=== PATIENT | female | born 1995 | race Caucasian/White ===

== ENCOUNTER 2021-01-01 08:00 | Outpatient (CLI) | payer OTHER ==
[2021-01-02 12:56] LABS: BILIRUBIN,URINE NEGATIVE (NEGATIVE); GLUCOSE, URINE (UA) NEGATIVE (NEGATIVE); KETONES,URINE (UA) NEGATIVE (NEGATIVE); LEUKOCYTE ESTERASE, URINE NEGATIVE (NEGATIVE); NITRITE,URINE NEGATIVE (NEGATIVE); OCCULT BLOOD,URINE NEGATIVE (NEGATIVE); PROTEIN,URINE NEGATIVE (NEGATIVE); UROBILINOGEN,URINE 0.2 (NORMAL) E.U./dL (NORMAL)
[2021-01-02 13:07] LABS: BACTERIA,URINE Rare /HPF (None Seen); CLARITY,URINE CLEAR (CLEAR); CRYSTALS,URINE 3-5 Calcium Oxalate /LPF; RBC,URINE None Seen /HPF (0-5); SQUAMOUS EPITHELIAL CELL,UR FEW Squamous (<= Few); WBC,URINE 0-3 /HPF (0-5)
== END 2021-01-01 23:59 ==
LOC: LAB.R 08:00
PROVIDERS: ATTEND Nurse Practitioner Obstetrics & Gynecology
DX: Z32.01 Encounter for pregnancy test, result positive (principal)
CPT/HCPCS: 81001; 87086

== ENCOUNTER 2021-01-06 15:11 | Outpatient (CLI) | payer OTHER | END 2021-01-06 15:12 | disposition home or self-care (01) | LOC: DI 15:11 | PROVIDERS: ATTEND Nurse Practitioner Obstetrics & Gynecology | DX: Z32.01 Encounter for pregnancy test, result positive (principal) ==

== ENCOUNTER 2021-01-07 08:00 | Outpatient (CLI) | payer OTHER ==
[2021-01-08 21:15] LABS: CHLAMYDIA TRACHOMATIS DNA NEGATIVE (NEGATIVE); NEISSERIA GONORRHOEAE DNA NEGATIVE (NEGATIVE); TRICHOMONAS VAGINALIS DNA NEGATIVE (NEGATIVE)
== END 2021-01-07 23:59 | disposition home or self-care (01) ==
LOC: LAB.WC 08:00
PROVIDERS: ATTEND Nurse Practitioner Obstetrics & Gynecology
DX: Z11.3 Encounter for screening for infections with a predominantly sexual mode of transmission (principal)
CPT/HCPCS: 87491; 87591; 87661

== ENCOUNTER 2021-01-07 16:20 | Outpatient (CLI) | payer OTHER ==
[2021-01-07 16:45] LABS: BASOPHILS % (AUTO) 0.2 %; EOSINOPHILS # (AUTO) 0.1 10^3/uL (0.0-0.7); EOSINOPHILS % (AUTO) 1.1 %; HCT - HEMATOCRIT 34.2 % (37.0-47.0); HGB - HEMOGLOBIN 11.6 g/dL (12.0-16.0); LYMPHOCYTES % (AUTO) 23.7 %; MEAN CORPUSCULAR HEMOGLOBIN 28.6 pg (27.0-31.0); MEAN CORPUSCULAR HGB CONC 33.9 g/dL (32.0-36.0); MEAN CORPUSCULAR VOLUME 84.2 fL (81.0-99.0); MEAN PLATELET VOLUME 10.3 fL (7.9-10.8); MONOCYTES # (AUTO) 0.6 10^3/uL (0.0-1.0); MONOCYTES % (AUTO) 4.5 %; NEUTROPHILS # (AUTO) 8.9 10^3/uL (1.5-6.6); NEUTROPHILS % (AUTO) 70.1 %; PLT - PLATELET COUNT 346 10^3/uL (130-450); RED BLOOD COUNT 4.06 10^6/uL (4.20-5.40); RED CELL DISTRIBUTION WIDTH 13.3 % (12.0-15.0); WHITE BLOOD COUNT 12.6 x10^3/uL (4.8-10.8)
[2021-01-08 12:18] LABS: HEPATITIS B SURFACE ANTIGEN NON-REACTIVE (NON-REACTIVE); HEPATITIS C ANTIBODY NON-REACTIVE (NON-REACTIVE)
[2021-01-08 16:16] LABS: HIV AG/AB 4TH GEN NON-REACTIVE (NON-REACTIVE)
== END 2021-01-07 16:21 | disposition home or self-care (01) ==
LOC: LAB 16:20
PROVIDERS: ATTEND Nurse Practitioner Obstetrics & Gynecology
DX: Z36.89 Encounter for other specified antenatal screening (principal)
CPT/HCPCS: 36415; 85025; 86592; 86762; 86787; 86803; 86850; 86900; 86901; 87340; 87389

== ENCOUNTER 2021-01-30 10:00 | Outpatient (CLI) | payer OTHER | END 2021-01-30 10:01 | disposition home or self-care (01) | LOC: LAB.N 10:00 | PROVIDERS: ATTEND Obstetrics & Gynecology | DX: O30.049 Twin pregnancy, dichorionic/diamniotic, unspecified trimester (principal) | CPT/HCPCS: 36415; 82950 ==

== ENCOUNTER 2021-02-14 09:40 | Outpatient (CLI) | payer OTHER ==
--- NOTE | 2021-02-14 23:56 | Ultrasound Report ---
PROCEDURE: OB Detailed Eval INDICATIONS: SUPERVISION OF NORMAL OUTSIDE/PRIOR DATING DATA: Last menstrual period (LMP): 09/20/2020. LMP-based estimated date of delivery (ARON): 06/27/2021. First dating scan (date and location): 07/06/2020. Estimated date of delivery (ARON) from first dating scan: 06/25/2021. TECHNIQUE: Real-time scanning was performed of the fetuses, with image documentation and biometric measurements. Endovaginal scanning: None COMPARISON: None. FINDINGS: General: An intrauterine dichorionic-diamniotic twin is present, as evidenced by separate placentas, differing sexes, or an intervening membrane of greater than 2 mm. Maternal cervical canal: 5.4 cm; normal length is 2.5 cm or more. FETUS A: Fetus is located on the maternal right side, and is in transverse presentation. ALISA: 13.6 cm, largest vertical pocket 7.2 cm Placental position is maternal left, without previa. heart rate: 143 beats per minute. biometrics: Biparietal diameter: 5.2 cm, 21 week 5 day Head circumference: 18.9 cm, 21 week 1 day Abdominal circumference: 16.2 cm, 21 week 2 day Femur length: 3.7 cm, 21 week 5 day Estimated gestational age from initial scan: 21 week 2 day Composite gestational age from present scan: 21 week 2 day Estimated weight and percentile: 525 g, 54th percentile Measurement variability in biometric dating: +/- 10 days from 12-20 weeks gestation, +/- 2 weeks from 20-30 weeks gestation, +/- 3 weeks at 30 weeks gestation or later. Anatomic survey: Neuro: Ventricles are normal at less than 10 mm. Cisterna magna is normal at 3-11 mm. Cerebellum i s normal in size and morphology. Nuchal skin fold: Normal at less than 6 mm between 14 and 20 weeks gestational age. Face: Not seen Spine: No evidence for spina bifida. Heart: 4 chambered heart is present, with normal ventricular outflow tracts. Diaphragm: Diaphragm is intact. Stomach: Left-sided stomach is present. Kidneys: No hydronephrosis. Normal is less than 5 mm in 2nd trimester, less than 7 mm in 3rd trimester. Cord: 3-vessel cord has orthotopic insertion. Bladder: Normal in size. Extremities: All 4 extremities are visualized. FETUS B: Fetus is located on the maternal right side, and is in transverse presentation. ALISA: 12.3 cm, largest vertical pocket 7.4 cm Placental position is posterior fundal without previa. heart rate: 150 beats per minute. biometrics: Biparietal diameter: 4.9 cm, 20 week 5 day Head circumference: 18.0 cm, 20 week 3 day Abdominal circumference: 16.2 cm, 21 week 2 day Femur length: 3.5 cm, 21 week 1 day Estimated gestational age from initial scan: 21 week 2 day Composite gestational age from present scan: 21 week 0 day Estimated weight and percentile: 400 g, 35 percentile Measurement variability in biometric dating: +/- 10 days from 12-20 weeks gestation, +/- 2 weeks from 20-30 weeks gestation, +/- 3 weeks at 30 weeks gestation or later. Anatomic survey: Neuro: Ventricles are normal at less than 10 mm. Cisterna magna is normal at 3-11 mm. Cerebellum i s normal in size and morphology. Nuchal skin fold: Normal at less than 6 mm between 14 and 20 weeks gestational age. Face: Not seen Spine: No evidence for spina bifida. Heart: 4 chambered heart is present, right ventricular outflow tract not well seen Diaphragm: Diaphragm is intact. Stomach: Left-sided stomach is present. Kidneys: No hydronephrosis. Normal is less than 5 mm in 2nd trimester, less than 7 mm in 3rd trimester. Cord: 3-vessel cord has orthotopic insertion. Bladder: Normal in size. Extremities: All 4 extremities are visualized. IMPRESSION: Dichorionic diamniotic intrauterine consistent with a 21 week 2 day gestation by initial ul trasound profiles are not well seen due to positioning Right ventricular outflow tract not well visualized Reviewed by: Beto Leos MD on 02/14/2021 10:55 PM RAFAEL Approved by: Beto Leos MD on 02/14/2021 10:55 PM RAFAEL Station ID: [id number]
--- NOTE | 2021-02-14 23:59 | Ultrasound Report ---
PROCEDURE: OB Detailed Eval Ea Add INDICATIONS: SUPERVISION OF NORMAL This exam is reported under the OB detailed eval report. Please refer that report. IMPRESSION: As above Reviewed by: Beto Leos MD on 02/14/2021 10:57 PM [facility] Approved by: Beto Leos MD on 02/14/2021 10:57 PM AKKO[facility] Station ID: [id number]
== END 2021-02-14 09:41 | disposition home or self-care (01) ==
LOC: DI 09:40
PROVIDERS: ATTEND Nurse Practitioner Obstetrics & Gynecology
DX: Z36.89 Encounter for other specified antenatal screening (principal); Z34.02 Encounter for supervision of normal first pregnancy, second trimester; Z3A.21 21 weeks gestation of pregnancy

== ENCOUNTER 2021-03-27 08:00 | Outpatient (CLI) | payer OTHER ==
[2021-03-27 18:19] LABS: HGB - HEMOGLOBIN 10.7 g/dL (12.0-16.0); MEAN CORPUSCULAR HEMOGLOBIN 28.8 pg (27.0-31.0); MEAN CORPUSCULAR HGB CONC 32.4 g/dL (32.0-36.0); MEAN CORPUSCULAR VOLUME 88.7 fL (81.0-99.0); RED BLOOD COUNT 3.72 10^6/uL (4.20-5.40); RED CELL DISTRIBUTION WIDTH 14.3 % (12.0-15.0)
== END 2021-03-27 23:59 | disposition home or self-care (01) ==
LOC: LAB.WCP 08:00
PROVIDERS: ATTEND Obstetrics & Gynecology
DX: O09.92 Supervision of high risk pregnancy, unspecified, second trimester (principal)
CPT/HCPCS: 36415; 82950; 85027

== ENCOUNTER 2021-03-27 10:18 | Outpatient (CLI) | payer OTHER | END 2021-03-27 10:19 | disposition home or self-care (01) | LOC: LAB.N 10:18 | PROVIDERS: ATTEND Obstetrics & Gynecology | DX: Z53.9 Procedure and treatment not carried out, unspecified reason (principal); O09.92 Supervision of high risk pregnancy, unspecified, second trimester ==

== ENCOUNTER 2021-04-24 19:44 | Outpatient (CLI) | payer OTHER ==
--- NOTE | 2021-04-25 10:06 | Ultrasound Report ---
PROCEDURE: OB F/U or Repeat INDICATIONS: DICHORIONIC DIAMNIOTIC TWIN OUTSIDE/PRIOR DATING DATA: Last menstrual period (LMP): 09/20/2020. LMP-based estimated date of delivery (ARON): 06/27/2020. First dating scan (date and location): 01/06/2021. Estimated date of delivery (ARON) from first dating scan: 06/25/2020. The below data below was generated using the ultrasound ARON of 06/25/2020 TECHNIQUE: Real-time scanning was performed of the fetus, with image documentation and biometric measurements. COMPARISON: 02/14/2021 FINDINGS: General: Twin live dichorionic diamniotic gestation is present. Presentation: Breech for both fetus A and B. Placenta: Placental position is anterior in fetus A and posterior for fetus B, without previa. Amniotic fluid index: 8.2 cm fetus A and 14 4 cm fetus B. Largest pocket measures 7.2 and 7.4 cm resp ectively for fetus A and fetus B. heart rate: 135 and 145 beats per minute for fetus A and B respectively. Maternal cervical canal: cm long; normal length is 2.5 cm or more. biometrics: Fetus A Biparietal diameter: 7.7 cm 31 weeks 0 days Head circumference: 20.7 cm 31 weeks 4 days Abdominal circumference: 25.6 cm 29 weeks 5 days Femur length: 5.7 cm 30 weeks 1 day Estimated gestational age from initial scan: 31 weeks 1 day Composite gestational age from present scan: 30 weeks 4 days Estimated weight and percentile: 1517 g 12th percentile Measurement variability in biometric dating: +/- 10 days from 12-20 weeks gestation, +/- 2 weeks from 20-30 weeks gestation, +/- 3 weeks at 30 weeks gestation or more. biometrics: Fetus B Biparietal diameter: 7.7 cm 30 weeks 5 days Head circumference: 28.9 cm 31 weeks 5 days Abdominal circumference: 26.5 cm 30 weeks 4 days Femur length: 5.8 cm 30 weeks 1 day Estimated gestational age from initial scan: 31 weeks 1 day Composite gestational age from present scan: 30 weeks 6 days Estimated weight and percentile: 1599 g 21st percentile Other: profile's are unable to be visualized secondary to positioning. In addition, outflow tra cts remain suboptimally visualized. IMPRESSION: 1. Dichorionic, diamniotic . 2. profile doubtful tracts remain suboptimally evaluated. 3. weight of fetus A is at the 12th percentile compared to 54th percentile on prior exam. Fetus B is at the 21st percentile compared to 35th percentile on prior exam. 4. ALISA of fetus a is measured at 8.2 cm. Largest pocket for both fetus A and fetus B are measured at 7.2 cm and 7.4 cm respectively. Reviewed by: Sade Starkey MD on 04/25/2021 10:05 AM PST Approved by: Sade Starkey MD on 04/25/2021 10:05 AM PST Station ID: [id number]
--- NOTE | 2021-04-25 10:08 | Ultrasound Report ---
PROCEDURE: OB 14+ Weeks Addtl Fetus INDICATIONS: DICHORIONIC DIAMNIOTIC TWIN OUTSIDE/PRIOR DATING DATA: Last menstrual period (LMP): 09/20/2020. LMP-based estimated date of delivery (ARON): 06/27/2020. First dating scan (date and location): 01/06/2021. Estimated date of delivery (ARON) from first dating scan: 06/25/2020. The below data below was generated using the ultrasound ARON of 06/25/2020 TECHNIQUE: Real-time scanning was performed of the fetus, with image documentation and biometric measurements. COMPARISON: 02/14/2021 FINDINGS: General: Twin live dichorionic diamniotic gestation is present. Presentation: Breech for both fetus A and B. Placenta: Placental position is anterior in fetus A and posterior for fetus B, without previa. Amniotic fluid index: 8.2 cm fetus A and 14 4 cm fetus B. Largest pocket measures 7.2 and 7.4 cm resp ectively for fetus A and fetus B. heart rate: 135 and 145 beats per minute for fetus A and B respectively. Maternal cervical canal: 5.4 cm long; normal length is 2.5 cm or more. biometrics: Fetus A Biparietal diameter: 7.7 cm 31 weeks 0 days Head circumference: 20.7 cm 31 weeks 4 days Abdominal circumference: 25.6 cm 29 weeks 5 days Femur length: 5.7 cm 30 weeks 1 day Estimated gestational age from initial scan: 31 weeks 1 day Composite gestational age from present scan: 30 weeks 4 days Estimated weight and percentile: 1517 g 12th percentile Measurement variability in biometric dating: +/- 10 days from 12-20 weeks gestation, +/- 2 weeks from 20-30 weeks gestation, +/- 3 weeks at 30 weeks gestation or more. biometrics: Fetus B Biparietal diameter: 7.7 cm 30 weeks 5 days Head circumference: 28.9 cm 31 weeks 5 days Abdominal circumference: 26.5 cm 30 weeks 4 days Femur length: 5.8 cm 30 weeks 1 day Estimated gestational age from initial scan: 31 weeks 1 day Composite gestational age from present scan: 30 weeks 6 days Estimated weight and percentile: 1599 g 21st percentile Other: profile's are unable to be visualized secondary to positioning. In addition, outflow tra cts remain suboptimally visualized. IMPRESSION: 1. Dichorionic, diamniotic . 2. profile doubtful tracts remain suboptimally evaluated. 3. weight of fetus A is at the 12th percentile compared to 54th percentile on prior exam. Fetus B is at the 21st percentile compared to 35th percentile on prior exam. 4. ALISA of fetus a is measured at 8.2 cm. Largest pocket for both fetus A and fetus B are measured at 7.2 cm and 7.4 cm respectively. Reviewed by: Sade Starkey MD on 04/25/2021 10:06 AM PST Approved by: Sade Starkey MD on 04/25/2021 10:06 AM PST Station ID: [id number]
== END 2021-04-24 19:45 | disposition home or self-care (01) ==
LOC: DI 19:44
PROVIDERS: ATTEND Obstetrics & Gynecology
DX: O30.043 Twin pregnancy, dichorionic/diamniotic, third trimester (principal); Z3A.30 30 weeks gestation of pregnancy

== ENCOUNTER 2021-05-16 14:45 | Outpatient (CLI) | payer OTHER | END 2021-05-16 23:59 | disposition home or self-care (01) | LOC: LAB 14:45 | PROVIDERS: ATTEND Obstetrics & Gynecology | DX: Z36.85 Encounter for antenatal screening for Streptococcus B (principal) | CPT/HCPCS: 87797 ==

== ENCOUNTER 2021-05-23 11:17 | Outpatient (CLI) | payer OTHER ==
--- NOTE | 2021-05-23 14:12 | Ultrasound Report ---
PROCEDURE: OB F/U or Repeat INDICATIONS: DICHORIONIC DIAMNIOTIC TWIN OUTSIDE/PRIOR DATING DATA: Last menstrual period (LMP): 09/20/2020. LMP-based estimated date of delivery (ARON): 06/27/2020. First dating scan (date and location): 01/06/2021. Estimated date of delivery (ARON) from first dating scan: 06/25/2020. The below data below was generated using the ultrasound ARON of 06/25/2020 TECHNIQUE: Real-time scanning was performed of the fetus, with image documentation and biometric measurements. COMPARISON: 04/24/2021 FINDINGS: General: Twin live dichorionic diamniotic gestation is present. Presentation: Breech for both fetus A and B. Placenta: Placental position is anterior in fetus A and posterior for fetus B, without previa. Amniotic fluid index: 8.4 for fetus A and 10.8 for fetus B. heart rate: 135 and 145 beats per minute for fetus A and B respectively. Maternal cervical canal: Not seen. biometrics: Fetus A Biparietal diameter: 8.4 cm Head circumference: 31.3 cm Abdominal circumference: 31.6 cm Femur length: 6.6 cm Estimated weight and percentile: 2541g 37th percentile biometrics: Fetus B Biparietal diameter: 8.2 cm Head circumference: 30.2 cm Abdominal circumference: 31.6 cm Femur length: 6.4 cm Estimated weight and percentile: 2400 g, 22nd percentile IMPRESSION: Dichorionic diamniotic . Right ventricular outflow tract of fetus B is not visualized secondary to position. Fetus A estimated weight 37th percentile. Fetus B estimated weight 22nd percentile. facial profiles are seen and are normal. Reviewed by: Regan Waddell MD on 05/23/2021 2:10 PM PST Approved by: Regan Waddell MD on 05/23/2021 2:10 PM PST Station ID: [id number]
== END 2021-05-23 11:18 | disposition home or self-care (01) ==
LOC: DI 11:17
PROVIDERS: ATTEND Obstetrics & Gynecology
DX: O09.92 Supervision of high risk pregnancy, unspecified, second trimester (principal); O30.042 Twin pregnancy, dichorionic/diamniotic, second trimester; Z3A.01 Less than 8 weeks gestation of pregnancy

== ENCOUNTER 2021-06-16 13:49 | Outpatient (CLI) | payer OTHER ==
[2021-06-16 14:05] LABS: BASOPHILS % (AUTO) 0.2 %; EOSINOPHILS # (AUTO) 0.1 10^3/uL (0.0-0.7); EOSINOPHILS % (AUTO) 0.7 %; HCT - HEMATOCRIT 36.6 % (37.0-47.0); HGB - HEMOGLOBIN 12.1 g/dL (12.0-16.0); LYMPHOCYTES # (AUTO) 2.1 10^3/uL (1.5-3.5); LYMPHOCYTES % (AUTO) 21.2 %; MEAN CORPUSCULAR HEMOGLOBIN 29.4 pg (27.0-31.0); MEAN CORPUSCULAR HGB CONC 33.1 g/dL (32.0-36.0); MEAN CORPUSCULAR VOLUME 88.8 fL (81.0-99.0); MEAN PLATELET VOLUME 11.2 fL (7.9-10.8); MONOCYTES # (AUTO) 0.7 10^3/uL (0.0-1.0); MONOCYTES % (AUTO) 6.9 %; NEUTROPHILS # (AUTO) 7.1 10^3/uL (1.5-6.6); NEUTROPHILS % (AUTO) 70.7 %; PLT - PLATELET COUNT 232 10^3/uL (130-450); RED BLOOD COUNT 4.12 10^6/uL (4.20-5.40); RED CELL DISTRIBUTION WIDTH 15.3 % (12.0-15.0); WHITE BLOOD COUNT 10.1 x10^3/uL (4.8-10.8)
== END 2021-06-16 13:50 | disposition home or self-care (01) ==
LOC: LAB 13:49
PROVIDERS: ATTEND Obstetrics & Gynecology
DX: Z01.812 Encounter for preprocedural laboratory examination (principal); O32.1XX0 Maternal care for breech presentation, not applicable or unspecified; O30.009 Twin pregnancy, unspecified number of placenta and unspecified number of amniotic sacs, unspecified trimester
CPT/HCPCS: 36415; 85025; 86850; 86900; 86901

== ENCOUNTER 2021-06-17 06:25 | Inpatient (IN) | payer OTHER ==
[~2021-06-17 06:25] MED LIST: LACTATED RINGERS 1,000 ML IV SCH
[2021-06-17] MEDS ORDERED: CELECOXIB 100 MG CAPSULE PO SCH (07:31)
[2021-06-17] MEDS ORDERED: GABAPENTIN 400 MG CAPSULE PO SCH (07:35)
--- NOTE | 2021-06-17 07:38 | HISTORY & PHYSICAL EXAMINATION ---
History and Physical - History and Physical HPI: 18-year-old -0-1-0 at 38 weeks 4 days gestation presents today for primary low transverse section secondary to malpresentation of both di- ditwins. She has good movement. Denies contractions. Denies loss of fluid. No RUFF/BV or RUQP. No vaginal bleeding. Denies nausea and vomiting. Denies urinary urgency or dysuria. All other symptoms reviewed and were negative except per HPI. Course LMP: 09/20/2020 ARON by LMP:06/29/2021 Initial U/S: 01/06/21 FINAL ARON: 06/27/21 550 Celebrex were diagnostic for 15 and 37 with malpresentation of di-ditwins 1. A pos/Rubella - immune VZV:immune Genetic testing: declines FAS:Fetus A- EFW 54%, 3VC, maternal left placenta without previa, ALISA 13.6cm FHR 143. 31-week 1517 g, 12 percentile, decreased from 54th percentile fetus. Repeat 35 weeks 2541 g 37th percentile. Fetus B-EFW 35%, 3VC, posterior fundal placenta without previa, ALISA 12.3cm [id number]. 31-week 1599 g, 21st percentile, decreased from 35th percentile. Repeat 35 weeks 2400 g 22nd percentile. Glucola: 123, repeat 03/27- 99 Influenza: 01/07 TDAP 04/10 Covid vaccine: Had COVID 08/2019; Pfizer#1: 12/2020 #2: 01/2021 GBS 05/16/2021 NEGATIVE HSV: denies in self and partner Breast pump Rx 04/10 MOD: Likely CS unless baby A becomes cephalic. Scheduled 06/17/21. pp contraception: Previous on patch and pill. Considering patch. May wait until done childbearing. pap:06/2020 [facility] PMH Declines pertinent history PSH Left oophorectomy, 2018 [place] teeth removal 2011 OB History -0-1-0 1. 02/12/2018, 12 weeks, elective SH Denies tobacco, alcohol, drugs Family History Maternal grandfather: Leukemia Allergies No known drug allergies Medications vitamins Folic acid Aspirin 81 mg Physical exam: Temp Pulse Resp BP Pulse Ox 98.1 F 83 16 122/77 100 06/17/21 07:09 06/17/21 07:09 06/17/21 07:09 06/17/21 07:09 06/17/21 07:09 General: Alert, oriented, no acute distress Head: Normal cephalic atraumatic Eyes: PERRLA, extraocular motions intact. Respiratory: Normal rate of respiration. No accessory muscle use, normal respiratory effort. Cardiovascular: Regular rate and rhythm Abdomen: Gravid, nontender, nondistended Extremities: Normal range of motion Neuro: Oriented x3. Normal movements Psych: Appropriate mood and affect. Normal judgment and insight Ultrasound: Confirmed breech again today. Plan 26-year-old -0-1-0 at 38 weeks 4 days gestation 1. Di-di twins -Plan for primary low transverse section due to malpresentation -Admit labs ordered -Plan for cefazolin for surgical prophylaxis. 2. malpresentation -Both twins confirmed breech this morning. Unsure if complete or [place] as ultrasound is limited by patient and twin positioning. 3. 38-week gestation 4. Obesity class 3, BMI 48
[2021-06-17] MEDS ORDERED: ACETAMINOPHEN 500 MG TABLET PO SCH (08:00)
[2021-06-17] MEDS ORDERED: LIDOCAINE 2%-EPI 1:100000 20 ML MDV ONE (08:18)
[2021-06-17] MEDS ORDERED: BUPIVACAINE 0.5% PF 10 ML VIAL ONE (08:18)
[2021-06-17] MEDS ORDERED: OXYTOCIN 10 UNIT/ML VIAL ONE (08:20)
[2021-06-17] MEDS ORDERED: PHENYLEPHRINE 10 MG/ML VIAL ONE (08:20)
[2021-06-17] MEDS ORDERED: miSOPROStoL 200 MCG TABLET ONE (08:23)
[2021-06-17] MEDS ORDERED: CARBOPROST TROMETHAMINE 250 MCG/ML AMP IM ONE (08:24)
[2021-06-17] MEDS ORDERED: METHYLERGONOVINE 0.2 MG/ML VIAL ONE (08:24)
[2021-06-17] MEDS ORDERED: fentaNYL 100 MCG/2 ML VIAL ONE (08:29)
[2021-06-17] MEDS ORDERED: MORPHINE PF 5 MG/10 ML VIAL ONE (08:29)
[2021-06-17] MEDS ORDERED: MORPHINE 2 MG/ML CARPUJECT IVP PRN (08:34)
[2021-06-17] MEDS ORDERED: HYDROmorphone 0.5 MG/0.5 ML SYRINGE IVP PRN (08:34)
[2021-06-17] MEDS ORDERED: NALOXONE 0.4 MG/ML VIAL IVP PRN (08:34)
[2021-06-17] MEDS ORDERED: METOCLOPRAMIDE 10 MG/2 ML VIAL IVP PRN (08:34)
[2021-06-17] MEDS ORDERED: ePHEDrine 50 MG/ML VIAL IVP PRN (08:34)
[2021-06-17] MEDS ORDERED: ONDANSETRON 4 MG/2 ML VIAL IVP PRN (08:34)
[2021-06-17] MEDS ORDERED: ATROPINE ABBOJECT 1 MG/10 ML SYRINGE IVP PRN (08:34)
[2021-06-17] MEDS ORDERED: fentaNYL 100 MCG/2 ML VIAL IVP PRN (08:34)
--- NOTE | 2021-06-17 08:34 | ANESTHESIA ---
Pre-Anesthesia VS, & Labs - Diagnosis breech twins - Procedure Vital Signs: Temp Pulse Resp BP Pulse Ox 36.7 C 83 16 122/77 100 06/17/21 07:38 06/17/21 07:09 06/17/21 07:09 06/17/21 07:09 06/17/21 07:09 Height: 5 ft 8 in Weight (kg): 143.108 kg Body Mass Index: 47.9 BMI Classification: Morbidly Obese - NPO >8 hours - Is Patient ?: Yes - Lab Results Current Lab Results: Laboratory Tests 06/17/21 06:48: POC Whole Bld Glucose 67 L Home Medications and Allergies Active Medications Acetaminophen (Acetaminophen 500 Mg Tablet) 1,000 mg PO ONCE GIANA Stop: 06/17/21 10:00 Last Admin: 06/17/21 08:10 Dose: 1,000 mg Celecoxib (Celecoxib 100 Mg Capsule) 400 mg PO ONCE GIANA Stop: 06/17/21 10:00 Last Admin: 06/17/21 08:09 Dose: 400 mg Gabapentin (Gabapentin 400 Mg Capsule) 800 mg PO ONCE GIANA Stop: 06/17/21 10:00 Last Admin: 06/17/21 08:09 Dose: 800 mg Lactated Ringer's (Lr) 1,000 mls @ 0 mls/hr IV .Q0M GIANA Cefazolin Sodium 3 gm/ Sodium (Chloride) 50 mls @ 100 mls/hr IV ONCE ONE Stop: 06/17/21 08:59 Allergies/Adverse Reactions: Allergies Allergy/AdvReac Type Severity Reaction Status Date / Time No Known Drug Allergies Allergy Verified 06/17/21 01:11 Anes History & Medical History - Anesthetic History Anesthesia Complications: reports: No previous complications Family history of Anesthesia Complications: Denies Family history of Malignant Hyperthermia: Denies - Medical History Cardiovascular: reports: None Pulmonary: reports: None Gastrointestinal: reports: None Urinary: reports: None Neuro: reports: None Musculoskeletal: reports: None Smoking Status: Never smoker Exam General: Alert, Oriented x3, Cooperative Dental: WNL Mouth Openin Fingerbreadth Neck Mobility: Normal Mallampati classification: II Thyromental Distance: less than 4 cm Respiratory: Lungs clear Cardiovascular: Regular rate Plan Anesthesia Type: Spinal Consent for Procedure(s) Verified and Reviewed: Yes Code Status: Attempt Resuscitation ASA classification: 3-Severe systemic disease Is this case an emergency?: No
[2021-06-17] MEDS ORDERED: ONDANSETRON 4 MG/2 ML VIAL ONE (08:58)
[2021-06-17] MEDS ORDERED: LACTATED RINGERS 1,000 ML IV SCH ×2 (09:00→11:00)
[2021-06-17] MEDS ORDERED: LACTATED RINGERS 1,000 ML IV ONE (10:26)
[2021-06-17] MEDS ORDERED: ONDANSETRON ODT 4 MG TABLET TL PRN (10:31)
[2021-06-17] MEDS ORDERED: OXYTOCIN/SODIUM CHLORIDE 500 ML IV PRN (10:31)
--- NOTE | 2021-06-17 10:35 | OPERATIVE REPORT ---
Operative Report - General Admit Date: 06/17/21 Planned Procedure: Primary low transverse section Pre-Op Diagnosis: 38 weeks gestation, representation, di-di twins Procedure Performed: Primary low transverse section Post Op Diagnosis: Same, delivered - Procedure Note Primary Surgeon: Leonides Larkin MD Secondary Surgeon: Dionna Olvera MD Anesthesia Provider: Rolly Preston CRNA Anesthesia Technique: Spinal Pathology: None Estimated Blood Loss (mL): 850 Urine Output (mL): 200 Complications: None - Other Other Information/Narrative: section was recommended. Risks, benefits and alternatives were discussed including but not limited to infection, bleeding that may require blood products or hysterectomy for life saving measures, injury to surrounding organs including but not limited to bowel, bladder, ureters, tubes and ovaries and/or the baby. Should injury occur it could require longer/additional surgery to repair. The patient stated understanding and desired to proceed. All questions were answered posed by patient. Prior to being taken to the OR, 3 grams of cefazolin IV was administered. The patient was taken to the operating room where regional anesthesia was found to be adequate. She was then prepared and draped in the usual sterile fashion in the dorsal supine position with a leftward tilt displacing the uterus. Vega was draining to gravity. SCDs were on bilateral lower extremities. A pfannenstiel skin incision was then made with the scalpel and carried through to the underlying layer of fascia. The fascia was incised in the midline and the incision extended laterally with the Saini scissors. The superior aspect of the facial incision was then grasped with the Sergio clamps, elevated and the underlying rectus muscles dissected off sharply. Attention was then turned to the inferior aspect of this incision which in a similar fashion was grasped, elevated with the Sergio clamps and the rectus muscle dissected off sharply. The rectus muscles were in the midline. The peritoneum identified, grasped with the pick-ups and entered bluntly. The peritoneal incision was then extended superiorly and inferiorly with good visualization of the bladder. The bladder blade was inserted. The vesicouterine peritoneum was identified, grasped with the pick-ups, and entered sharply with Metzenbaum scissors. This incision was then extended laterally and the bladder flap created digitally. The bladder blade was reinserted. The lower uterine segment was identified and incised in a transverse fashion with the scalpel. The uterine incision was then extended bluntly laterally. Artificial rupture of membranes demonstrated clear fluid. The bladder blade was removed. The fetus was in a complete breech presentation. The feet were delivered then the fetus was delivered to the sacrum when a warm, moist towel was used to wrap the fetus. It was then delivered to the scapula and was rotated with the left shoulder anterior which was then flexed, medially rotated and delivered. The fetus was then rotated so the right shoulder was anterior and the right arm was similarly delivered. The head then delivered easily with fundal pressure. Delayed cord clamping was performed for approximately one minute. It was then clamped times two and cut and Baby A was handed to the hot sealing machine operator. Cord blood was obtained and the cord was marked with a curved clamp. Attention was turned to fetus B. The fetus was in a Ke[place] breech presentation. The fetus was delivered to the sacrum then the legs were flexed and delivered. Then a warm, moist towel was used to wrap the fetus. It was then delivered to the scapula and was rotated with the left shoulder anterior which was then flexed, medially rotated and delivered. The fetus was then rotated so the right shoulder was anterior and the right arm was similarly delivered. The head then delivered easily with fundal pressure. Delayed cord clamping was performed for approximately one minute. It was then clamped times two and cut and Baby B was handed to the hot sealing machine operator. Cord blood was obtained and the cord was marked with a straight clamp. The placentas were removed with gentle traction. 20 units of oxytocin were added to IVF and allowed to run freely. The uterus was exteriorized and cleared of all clots and debris. The uterine incision was inspected and found to be without any extensions and was repaired with 0 Vicryl in a running, locked fashion. A second imbricating layer was performed. Upon inspection, the repaired hysterotomy was found to be hemostatic. The uterus was firm and returned to the abdomen. The gutters were cleared of all clots and debris. The fascia was reapproximated with 0 Vicryl in a running fashion. The subcutaneous tissue was closed with 2-0 Vicryl. The skin was closed in a subcuticular fashion with 4-0 Vicryl. The patient tolerated the procedure well. Sponge, lap and needle counts were correct times three. The patient was taken to the recovery room in stable condition.
[2021-06-17] MEDS ORDERED: IBUPROFEN 600 MG TABLET PO SCH (11:00)
[2021-06-17] MEDS ORDERED: KETOROLAC 30 MG/ML VIAL IVP SCH ×2 (11:00→14:00)
--- NOTE | 2021-06-17 11:07 | ANESTHESIA POST OP EVALUATION ---
Anesthesia Post Eval - Post Anesthesia Eval Vitals: Last Vital Signs Temp 37.4 C 06/17/21 10:46 Pulse 62 06/17/21 11:00 Resp 11 L 06/17/21 11:00 BP 110/73 06/17/21 11:00 Pulse Ox 99 06/17/21 11:00 CV Function Including HR & BP: Stable Pain Control: Satisfactory Nausea & Vomiting: Negative Mental Status: Baseline Respiratory Status: Airway Patent Hydration Status: Satisfactory Anesthesia Complications: None
[2021-06-17] MEDS: ACETAMINOPHEN 500 MG TABLET PO SCH ×3 (13:05→23:54)
[2021-06-17] MEDS: SIMETHICONE CHEW 80 MG TABLET PO PRN (13:09)
[2021-06-17] MEDS: metroNIDAZOLE 250 MG TABLET PO SCH ×2 (13:09→17:38)
[2021-06-17] MEDS ORDERED: KETOROLAC 15 MG/ML VIAL IVP SCH (14:00)
[2021-06-17] MEDS: cephALEXin 250 MG CAPSULE PO SCH ×2 (14:16→21:54)
[2021-06-17] MEDS: SODIUM CHLORIDE FLUSH 0.9% 10 ML SYRINGE IVP SCH (19:29)
[2021-06-17] MEDS: KETOROLAC 30 MG/ML VIAL IVP SCH (19:56)
[2021-06-17] MEDS: SODIUM CHLORIDE FLUSH 0.9% 10 ML SYRINGE IVP PRN (20:02)
[2021-06-17] MEDS: DOCUSATE SODIUM 100 MG CAPSULE PO SCH (21:54)
[2021-06-18] MEDS: SODIUM CHLORIDE FLUSH 0.9% 10 ML SYRINGE IVP PRN (02:09)
[2021-06-18] MEDS: KETOROLAC 30 MG/ML VIAL IVP SCH ×2 (02:09→07:51)
[2021-06-18 05:47] LABS: BASOPHILS % (AUTO) 0.3 %; EOSINOPHILS # (AUTO) 0.1 10^3/uL (0.0-0.7); EOSINOPHILS % (AUTO) 0.7 %; LYMPHOCYTES # (AUTO) 2.1 10^3/uL (1.5-3.5); LYMPHOCYTES % (AUTO) 18.3 %; MEAN CORPUSCULAR HEMOGLOBIN 29.6 pg (27.0-31.0); MEAN CORPUSCULAR HGB CONC 33.3 g/dL (32.0-36.0); MEAN CORPUSCULAR VOLUME 88.8 fL (81.0-99.0); MEAN PLATELET VOLUME 10.7 fL (7.9-10.8); MONOCYTES # (AUTO) 0.9 10^3/uL (0.0-1.0); MONOCYTES % (AUTO) 7.5 %; NEUTROPHILS # (AUTO) 8.4 10^3/uL (1.5-6.6); NEUTROPHILS % (AUTO) 72.7 %; PLT - PLATELET COUNT 193 10^3/uL (130-450); RED BLOOD COUNT 3.38 10^6/uL (4.20-5.40); RED CELL DISTRIBUTION WIDTH 15.6 % (12.0-15.0); WHITE BLOOD COUNT 11.6 x10^3/uL (4.8-10.8)
[2021-06-18] MEDS: cephALEXin 250 MG CAPSULE PO SCH ×3 (06:18→22:20)
[2021-06-18] MEDS: oxyCODONE 5 MG TABLET PO PRN ×5 (06:19→22:20)
[2021-06-18] MEDS: DOCUSATE SODIUM 100 MG CAPSULE PO SCH ×2 (07:51→20:59)
[2021-06-18] MEDS: SODIUM CHLORIDE FLUSH 0.9% 10 ML SYRINGE IVP SCH (07:51)
[2021-06-18] MEDS: metroNIDAZOLE 250 MG TABLET PO SCH ×3 (07:51→17:55)
[2021-06-18] MEDS: ACETAMINOPHEN 500 MG TABLET PO SCH ×2 (09:48→17:55)
[2021-06-18] MEDS: SIMETHICONE CHEW 80 MG TABLET PO PRN ×3 (09:48→17:55)
--- NOTE | 2021-06-18 10:21 | PROVIDER PROGRESS NOTE ---
Subjective - Prog Note Date Prog Note Date: 06/18/21 - Subjective Subjective: Subjective Patient reports she is doing well. Lochia appropriate. Denies heavy bleeding. Ambulating. Pelvic and abdominal pain well-controlled. Tolerating oral intake. Diet: Regular. Voiding without difficulty. Passing flatus. Denies BM. Patient is bonding with baby is in room Breast feeding going well. Denies feeling lightheaded, dizzy or excessively fatigued. Objective General: Alert, oriented, no apparent distress. Cardiovascular: Regular rate. Regular rhythm. Lungs: No increased work of breathing. Abdomen: Uterus firm. Below umbilicus. No guarding or rebound. Incision: Clean, dry, and intact. Assessment and Plan day 1. -Routine beinge -Anticipate discharge tomorrow Status post primary low transverse section -Wound intact with minimal bleeding Objective - Vital Signs/Intake & Output Vital Signs: Vital Signs x48h Temp Pulse Resp BP Pulse Ox 06/18/21 08:14 76 15 107/63 97 06/18/21 06:15 22 06/18/21 05:07 107/61 06/18/21 04:15 97.9 F 70 22 98/45 L 97 06/18/21 03:00 16 Intake & Output: Intake & Output 06/15/21 06/16/21 06/17/21 06/18/21 23:59 23:59 23:59 23:59 Intake Total 1900 1000 Output Total 938 1942 Balance 962 -942 - Lab Results Fish Bones: 06/18/21 05:38 Other Labs: Lab Results x24hrs 06/18/21 Range/Units 05:38 WBC 11.6 H (4.8-10.8) x10^3/uL RBC 3.38 L (4.20-5.40) 10^6/uL Hgb 10.0 L (12.0-16.0) g/dL Hct 30.0 L (37.0-47.0) % MCV 88.8 (81.0-99.0) fL MCH 29.6 (27.0-31.0) pg MCHC 33.3 (32.0-36.0) g/dL RDW 15.6 H (12.0-15.0) % Plt Count 193 (130-450) 10^3/uL MPV 10.7 (7.9-10.8) fL Neut # (Auto) 8.4 H (1.5-6.6) 10^3/uL Lymph # (Auto) 2.1 (1.5-3.5) 10^3/uL Meigs # (Auto) 0.9 (0.0-1.0) 10^3/uL Eos # (Auto) 0.1 (0.0-0.7) 10^3/uL Baso # (Auto) 0.0 (0.0-0.1) 10^3/uL Absolute Nucleated RBC 0.00 x10^3/uL Nucleated RBC % 0.0 /100WBC
[2021-06-18] MEDS: IBUPROFEN 600 MG TABLET PO SCH ×2 (14:14→20:05)
[2021-06-19] MEDS: IBUPROFEN 600 MG TABLET PO SCH ×4 (02:29→20:35)
[2021-06-19] MEDS: ACETAMINOPHEN 500 MG TABLET PO SCH ×3 (02:29→18:34)
[2021-06-19] MEDS: cephALEXin 250 MG CAPSULE PO SCH (06:27)
[2021-06-19] MEDS: oxyCODONE 5 MG TABLET PO PRN ×5 (06:27→22:30)
--- NOTE | 2021-06-19 07:28 | PROVIDER PROGRESS NOTE ---
Subjective - Prog Note Date Prog Note Date: 06/19/21 Prog Note Time: 07:27 - Subjective Pt reports feeling: Improved Subjective: Subjective Patient reports she is doing well. Lochia appropriate. Denies heavy bleeding. Ambulating without issue. Pelvic and abdominal pain well-controlled. Tolerating oral intake. Diet: Regular. Voiding without difficulty. Passing flatus. BM yesterday. Patient is bonding with baby is in room Breast feeding going well. Denies feeling lightheaded, dizzy or excessively fatigued. Objective General: Alert, oriented, no apparent distress. Cardiovascular: Regular rate. Regular rhythm. Lungs: No increased work of breathing. Abdomen: Uterus firm. Below umbilicus. No guarding or rebound. Incision: Clean, dry, and intact. Assessment and Plan day 2. -Routine care -Anticipate discharge tomorrow Status post primary low transverse section -Incision healing well Di-di twins Objective - Vital Signs/Intake & Output Vital Signs: Vital Signs x48h Temp Pulse Resp BP Pulse Ox 06/19/21 00:00 98.2 F 87 18 107/59 L 99 Intake & Output: Intake & Output 06/16/21 06/17/21 06/18/21 06/19/21 23:59 23:59 23:59 23:59 Intake Total 1900 1000 Output Total 933 3142 Balance 962 -2142 - Lab Results Fish Bones: 06/18/21 05:38
[2021-06-19] MEDS: DOCUSATE SODIUM 100 MG CAPSULE PO SCH ×2 (08:28→20:35)
[2021-06-19] MEDS: metroNIDAZOLE 250 MG TABLET PO SCH (08:28)
[2021-06-19] MEDS: SIMETHICONE CHEW 80 MG TABLET PO PRN (20:35)
[2021-06-20] MEDS: IBUPROFEN 600 MG TABLET PO SCH ×3 (02:03→14:01)
[2021-06-20] MEDS: ACETAMINOPHEN 500 MG TABLET PO SCH ×3 (02:03→17:44)
[2021-06-20] MEDS: oxyCODONE 5 MG TABLET PO PRN ×3 (04:47→17:45)
--- NOTE | 2021-06-20 07:03 | DISCHARGE SUMMARY ---
Discharge Summary Admit Date: 06/17/21 Discharge Date: 06/19/21 Discharging Provider: Leonides Larkin MD Code Status: Attempt Resuscitation Condition at Discharge: Good Discharge Disposition: 01 Home, Self Care - DIAGNOSES Admission Diagnoses: 38 weeks gestation Dichorionic, diamniotic twins Discharge Diagnoses with Status of Each Condition: 38 weeks gestation Dichorionic, diamniotic twins Status post primary low transverse section - HPI History of Present Illness: Subjective Is having some upper chest/back positional discomfort. She says she feels a tightness in the center of her chest rating to her back but only when she tries to stand up straight. This resolves if she slouches or when lying down. Denies GERD symptoms. Lochia appropriate. Denies heavy bleeding. Ambulating. Pelvic and abdominal pain well-controlled. Tolerating oral intake. Diet: Regular. Voiding without difficulty. Passing flatus. Denies BM. Patient is bonding with baby in room Breast feeding going well. Denies feeling lightheaded, dizzy or excessively fatigued. Objective General: Alert, oriented, no apparent distress. Cardiovascular: Regular rate. Regular rhythm. Lungs: No increased work of breathing. Abdomen: Uterus firm. Below umbilicus. No guarding or rebound. Incision: Clean, dry, and intact. - HOSPITAL COURSE Hospital Course: Patient is a 26-year-old G1 now P1 who presented at 38 weeks for scheduled section due to breech presentation of dichorionic, diamniotic twins. section was uncomplicated and recovered well. She stayed with an uneventful course and was discharged on postoperative day 3. weight Baby A: 2762 g Baby B 2993 g - ALLERGIES Allergies/Adverse Reactions: Allergies Allergy/AdvReac Type Severity Reaction Status Date / Time No Known Drug Allergies Allergy Verified 06/17/21 01:11 - MEDICATIONS Home Medications: Ambulatory Orders Medication Instructions Recorded Confirmed Acetaminophen [Acetaminophen Extra 1,000 mg PO Q8H PRN #60 tablet 06/18/21 Strength] Docusate Sodium 100Mg Capsule 100 - 200 mg PO BID PRN #60 cap 06/18/21 [Colace 100Mg Capsule] Ibuprofen [Motrin] 600 mg PO Q6H PRN #30 tab 06/18/21 oxyCODONE [Roxicodone] 2.5 - 5 mg PO Q4H PRN #24 tablet 06/18/21 - LABS Result Diagrams: 06/18/21 05:38 - FOLLOW UP Follow Up: 1 week with [facility] - TIME SPENT Time Spent in Discharge (Minutes): 20
[2021-06-20] MEDS: DOCUSATE SODIUM 100 MG CAPSULE PO SCH (08:33)
[2021-06-20] MEDS: SIMETHICONE CHEW 80 MG TABLET PO PRN ×3 (08:54→17:45)
[2021-06-20 14:02] VITALS: BP 127/77
--- NOTE | 2021-06-20 19:35 | Labor Flowsheet ---
Labor Flowsheet Datetime Report Generated by CPN: 06/20/2021 19:34 Datetime: 06/20/2021 13:59 VITAL SIGNS NBP Sys/Peggy/Mean (mmHg): 127 : 77 : 86 Pulse: 77 SpO2 (%): 99
== END 2021-06-20 19:33 | disposition home or self-care (01) | DRG 788 ==
LOC: FBP 06:25
PROVIDERS: ADMIT Obstetrics & Gynecology; ATTEND Obstetrics & Gynecology
PROC: 10D00Z1 Extraction of Products of Conception, Low, Open Approach (ICD-10-PCS; 2021-06-17)
PROC: 10907ZC Drainage of Amniotic Fluid, Therapeutic from Products of Conception, Via Natural or Artificial Opening (ICD-10-PCS; principal; 2021-06-17 08:30)
DX: O32.1XX1 Maternal care for breech presentation, fetus 1 (principal); O32.1XX2 Maternal care for breech presentation, fetus 2; O30.043 Twin pregnancy, dichorionic/diamniotic, third trimester; Z3A.38 38 weeks gestation of pregnancy; Z37.2 Twins, both liveborn; O99.214 Obesity complicating childbirth; E66.01 Morbid (severe) obesity due to excess calories
CPT/HCPCS: 36415; 85025; A9270; J2274; J7040; J7120